=== PATIENT | female | born 1975 | race Caucasian/White ===

== ENCOUNTER 2023-04-17 16:12 | Inpatient (IN) ==
[2023-04-17] MEDS ORDERED: Rocuronium 50 mg VIAL 10 mg/ml 5 ml VIAL (50 mg) ONE (16:20)
[2023-04-17] MEDS ORDERED: Succinylcholine 200 mg VIAL 20 mg/ml 10 ml VIAL (200 mg) ONE (16:20)
[2023-04-17] MEDS ORDERED: Etomidate 40 mg/20 ml (2 MG/ML) 20 ml VIAL (40 mg) ONE (16:29)
[2023-04-17] MEDS ORDERED: Lidocaine 2% PF 5 ML VIAL ONE (16:45)
[2023-04-17] MEDS ORDERED: Midazolam 10 mg/10 ml VIAL 1 mg/ml 10 ml VIAL (10 mg) ONE (16:52)
[2023-04-17] MEDS ORDERED: Etomidate 20 mg/10 ml 2 MG/ML 10 ml VIAL IV ONE (17:04)
[2023-04-17] MEDS: Midazolam PREMIXBAG 1 MG/ML NS 100 ML IV SCH (17:20)
[2023-04-17 17:29] LABS: Activated Partial Thrombo Time 37.8 seconds (26.0-38.0); INR 1.27 (0.83-1.13)
[2023-04-17 17:44] LABS: Urine Appearance Clear; Urine Bilirubin Negative (Negative); Urine Blood 3+ (Negative); Urine Color Yellow; Urine Glucose 1+(50 mg/dL) (Negative); Urine Ketones Negative (Negative); Urine Nitrite Negative (Negative); Urine Protein 1+(30 mg/dL) (Negative); Urine Specific Gravity 1.012 (1.002-1.030); Urine Urobilinogen Negative (Negative)
[2023-04-17 17:45] LABS: Potassium 5.1 mmol/L (3.5-5.0)
[2023-04-17 17:46] LABS: Albumin 4.5 g/dL (3.2-5.2); C Reactive Protein 17.46 mg/L (<8.01); Calcium 10.1 mg/dL (8.6-10.3); Creatinine, Serum 1.96 mg/dL (0.51-0.95); Globulin 4.6 g/dL (2-4); Total Bilirubin 0.5 mg/dL (0.2-1.0); Total Protein 9.1 g/dL (6.4-8.9); eGFR CKD-EPI 31.2 (>60)
[2023-04-17 17:52] LABS: ABS Basophils 0.1 10^3/uL (0.0-0.1); ABS Lymphocytes 2.6 10^3/uL (1.0-4.8); ABS Monocytes 0.6 10^3/uL (0.0-0.9); ABS Neutrophils 11.1 10^3/uL (1.5-7.6); ABS Nucleated RBC 0.05 10^3/ul; Eosinophil % 0.1 %; Hematocrit 53.8 % (35-45); Hemoglobin 17.5 g/dL (11.5-14.3); Lymphocyte % 18.3 %; Mean Corpuscular Hemoglobin 33.6 pg (27-33); Mean Corpuscular Hgb Conc 32.5 g/dL (31-36); Mean Corpuscular Volume 103.2 fL (80-97); Mean Platelet Volume 9.1 fL (7.5-11.2); Nucleated Red Blood Cells % 0.4 %/100WBC (0.0-0.8); Platelet Count 233 10^3/uL (150-450); Red Blood Count 5.22 10^6/uL (3.63-4.92); Red Cell Distribution Width 14.7 % (12-17); White Blood Count 14.4 10^3/uL (3.8-11.8)
[2023-04-17] MEDS ORDERED: Pantoprazole VIAL 40 MG VIAL IV SCH (18:00)
[2023-04-17] MEDS ORDERED: fentaNYL INFUSION 50 mcg/mL VL 2,500 MCG/50 ML VIAL IV SCH ×2 (18:00→21:17)
[2023-04-17] MEDS ORDERED: Enoxaparin 40 MG/0.4 ML SYR SUBCUT SCH (18:00)
[2023-04-17] MEDS ORDERED: Iodixanol (CONTRAST) 320 MG/ML 100 ML SDV IV ONE (18:00)
[2023-04-17] MEDS ORDERED: Piperacillin/Tazobac 3.375 BAG 3.375 GM/100 ML BAG IV ONE (18:15)
[2023-04-17] MEDS ORDERED: Vancomycin 1,000 MG in NS 0.9% 250 ml 250 ML IVPB ONE (18:15)
[2023-04-17 18:18] LABS: Urine Bacteria 1+ (Absent); Urine Red Blood Cell Trace(0-2/hpf) (Absent); Urine Squamous Epithelial Cell Present (Absent); Urine White Blood Cell Trace(0-5/hpf) (Absent)
[2023-04-17] MEDS ORDERED: Norepinephrine 4 MG/250mL D5W 4,000 MCG/250 ML BAG IV ONE (18:26)
[2023-04-17] MEDS ORDERED: Albuterol/Ipratropium NEB.SOL (2.5/0.5 MG) 3 ML NEB.SOLN ONE (18:28)
[2023-04-17 18:56] LABS: Acetaminophen < 15 mcg/mL; Alcohol, S < 13 mg/dL (<13); Salicylate < 2.50 mg/dL (<30)
[2023-04-17] MEDS ORDERED: Vancomycin per Pharmacy 1 EA NOTE FOLLOW UP SCH (19:00)
[2023-04-17] MEDS ORDERED: Vancomycin 2,000 MG in NS 0.9% 500 ml BAG 500 ML IVPB ONE (19:00)
[2023-04-17] MEDS ORDERED: Zosyn per Pharmacy NOTE FOLLOW UP SCH (19:00)
[2023-04-17] MEDS ORDERED: LACTATED RINGERS IV ONE (19:02)
[2023-04-17 19:06] LABS: Hematocrit 51.5 % (35-45); Mean Corpuscular Hemoglobin 33.9 pg (27-33); Mean Corpuscular Hgb Conc 32.9 g/dL (31-36); Mean Corpuscular Volume 103.1 fL (80-97); Mean Platelet Volume 8.6 fL (7.5-11.2); Platelet Count 182 10^3/uL (150-450); Red Cell Distribution Width 14.4 % (12-17)
[2023-04-17 19:08] LABS: TSH Ultra Thyroid Stim Horm 2.98 mcIU/mL (0.34-5.60)
[2023-04-17] MEDS ORDERED: Lidocaine 2% PF 10 ML AMP (OR) INJ ONE (19:13)
[2023-04-17 19:18] LABS: High Sensitivity Troponin 1 Hr 502 pg/mL (<15)
[2023-04-17] MEDS: Norepinephrine 4 MG/250mL D5W 4,000 MCG/250 ML BAG IV SCH ×2 (19:30→23:22)
[2023-04-17 19:47] LABS: ABS Lymphocytes 1.4 10^3/uL (1.0-4.8); ABS Monocytes 0.4 10^3/uL (0.0-0.9); ABS Neutrophils 10.2 10^3/uL (1.5-7.6); ABS Nucleated RBC 0.02 10^3/ul; Eosinophil % 0.1 %; Lymphocyte % 11.4 %; Nucleated Red Blood Cells % 0.2 %/100WBC (0.0-0.8)
[2023-04-17] MEDS: Lactated Ringers 1000 ml BAG 1,000 ML IV SCH ×2 (20:23→20:53)
[2023-04-17 20:37] LABS: ALT 382 U/L (7-52); Albumin 3.9 g/dL (3.2-5.2); Alkaline Phosphatase 144 U/L (35-149); Anion Gap 22 mmol/L (2-16); Blood Urea Nitrogen 14 mg/dL (6-24); C Reactive Protein 17.48 mg/L (<8.01); CO2 Carbon Dioxide 16 mmol/L (22-32); Calcium 8.9 mg/dL (8.6-10.3); Chloride 97 mmol/L (101-111); Creatinine, Serum 1.86 mg/dL (0.51-0.95); Globulin 3.9 g/dL (2-4); Glucose 84 mg/dL (70-100); Sodium 135 mmol/L (135-145); Total Bilirubin 0.9 mg/dL (0.2-1.0); Total Protein 7.8 g/dL (6.4-8.9); eGFR CKD-EPI 33.2 (>60)
[2023-04-17] MEDS: Chlorhexidine MOUTHWASH 0.12% 15 ML UDC SWISH SPIT SCH (20:50)
[2023-04-17] MEDS ORDERED: Cisatracurium 100 MG in NS 0.9% 250 ml 200 ML IV SCH ×2 (21:30→22:30)
[2023-04-17] MEDS ORDERED: Ketamine HCL 50 mg/ml 10 ml VIAL (500 MG) IV ONE ×2 (22:13→23:37)
[2023-04-17] MEDS ORDERED: Albuterol/Ipratropium NEB.SOL (2.5/0.5 MG) 3 ML NEB.SOLN INH ONE (22:13)
[2023-04-17] MEDS ORDERED: Phenylephrine 40 mcg/mL 10mL (400mcg) SYRINGE ONE (22:31)
[2023-04-17] MEDS ORDERED: Phenylephrine 40 mcg/mL 10mL (400mcg) SYRINGE IV PUSH PRN (22:40)
[2023-04-17 22:49] LABS: Resp Rate 28
[2023-04-17 22:52] LABS: PCO2 Arterial 88 mmHg (35-45); PO2 Arterial 59 mmHg (80-100)
[2023-04-17] MEDS ORDERED: Ketamine INFUS(restricted) NS 500 MG/500 ML BAG IV SCH (23:00)
[2023-04-17] MEDS ORDERED: Rocuronium 50 mg VIAL 10 mg/ml 5 ml VIAL (50 mg) IV ONE (23:06)
[2023-04-17] MEDS: Ketamine INFUS(restricted) NS 500 MG/500 ML BAG IV SCH (23:35)
[2023-04-17] MEDS ORDERED: Sodium Bicarbonate 8.4% SYR 50 ml SYRINGE ONE (23:53)
[2023-04-18] MEDS: Chlorhexidine MOUTHWASH 0.12% 15 ML UDC SWISH SPIT SCH ×5 (00:18→13:55)
[2023-04-18] MEDS: Norepinephrine 4 MG/250mL D5W 4,000 MCG/250 ML BAG IV SCH (00:20)
[2023-04-18] MEDS: fentaNYL INFUSION 50 mcg/mL VL 2,500 MCG/50 ML VIAL IV SCH ×2 (00:37→11:28)
[2023-04-18] MEDS: Hydrocortisone INJ 100 MG/2ML 2 ML VIAL IV SCH ×2 (00:44→08:39)
[2023-04-18] MEDS: EPINEPHrine 1 MG/ML MDV 5 MG in D5W 250 ml BAG 245 ML IV SCH ×3 (00:56→10:29)
[2023-04-18] MEDS ORDERED: Norepinephrine 4 MG/250mL D5W 0 MCG/0 ML BAG IV ONE (01:19)
[2023-04-18 01:22] LABS: Urine Benzodiazepine Screen Presumptive Positive (None Detect); Urine Cannabinoids Screen None Detected (None Detect); Urine Opiates Screen Presumptive Positive (None Detect)
[2023-04-18 01:25] LABS: Potassium Redraw 5.1 mmol/L (3.5-5.0)
[2023-04-18] MEDS: Norepinephrine 16 MG/250mL NS 16,000 MCG/250 ML BAG IV SCH ×3 (01:36→10:10)
[2023-04-18 01:40] LABS: ABS Lymphocytes 1.4 10^3/uL (1.0-4.8); ABS Monocytes 0.1 10^3/uL (0.0-0.9); ABS Neutrophils 5.1 10^3/uL (1.5-7.6); ABS Nucleated RBC 0.03 10^3/ul; Eosinophil % 0.1 %; Hemoglobin 16.3 g/dL (11.5-14.3); Lymphocyte % 21.5 %; Mean Corpuscular Hemoglobin 33.8 pg (27-33); Mean Corpuscular Hgb Conc 33.3 g/dL (31-36); Mean Corpuscular Volume 101.5 fL (80-97); Mean Platelet Volume 8.7 fL (7.5-11.2); Nucleated Red Blood Cells % 0.5 %/100WBC (0.0-0.8); Platelet Count 170 10^3/uL (150-450); Red Blood Count 4.83 10^6/uL (3.63-4.92); Red Cell Distribution Width 14.7 % (12-17); White Blood Count 6.7 10^3/uL (3.8-11.8)
[2023-04-18 01:44] VITALS: BP 97/67
[2023-04-18 01:54] LABS: PO2 Arterial 69 mmHg (80-100)
[2023-04-18] MEDS: Ketamine INFUS(restricted) NS 500 MG/500 ML BAG IV SCH ×4 (01:55→09:57)
[2023-04-18 01:58] LABS: PCO2 Arterial 83 mmHg (35-45)
[2023-04-18] MEDS ORDERED: Sodium Bicarbonate 8.4% SYR 50 ml SYRINGE IV ONE (02:23)
[2023-04-18] MEDS: Midazolam PREMIXBAG 1 MG/ML NS 100 ML IV SCH ×2 (02:32→13:16)
[2023-04-18 02:35] LABS: High Sensitivity Troponin 3 Hr 2959 pg/mL (<15)
[2023-04-18 02:41] LABS: Albumin 3.3 g/dL (3.2-5.2); Albumin/Globulin Ratio 0.9 (1-3); Alkaline Phosphatase 102 U/L (35-149); Blood Urea Nitrogen 17 mg/dL (6-24); CO2 Carbon Dioxide 25 mmol/L (22-32); Calcium 7.7 mg/dL (8.6-10.3); Chloride 97 mmol/L (101-111); Creatinine, Serum 1.99 mg/dL (0.51-0.95); Globulin 3.5 g/dL (2-4); Glucose 170 mg/dL (70-100); Sodium 134 mmol/L (135-145); Total Bilirubin 1.1 mg/dL (0.2-1.0); Total Protein 6.8 g/dL (6.4-8.9); eGFR CKD-EPI 30.6 (>60)
[2023-04-18 02:42] LABS: Anion Gap 12 mmol/L (2-16); HCG Pregnancy 0.75 mIU/mL
[2023-04-18 02:43] LABS: ALT 586 U/L (7-52)
[2023-04-18] MEDS: ZOSYN 3.375 GM Q8H per EXTENDED INFUSION IV SCH ×2 (04:23→11:22)
[2023-04-18 04:27] LABS: Magnesium 1.4 mg/dL (1.9-2.7); Phosphorus 5.7 mg/dL (2.5-5.0); Potassium Redraw 4.1 mmol/L (3.5-5.0)
[2023-04-18 04:28] LABS: Calcium 7.5 mg/dL (8.6-10.3); Creatinine, Serum 2.39 mg/dL (0.51-0.95); Potassium 4.2 mmol/L (3.5-5.0); eGFR CKD-EPI 24.6 (>60)
[2023-04-18] MEDS ORDERED: Magnesium Sulf 4 GM/100 ML IV 4,000 MG/100 ML BAG IVPB ONE (04:44)
[2023-04-18 04:51] LABS: Albumin 3.3 g/dL (3.2-5.2); Globulin 3.3 g/dL (2-4); Phosphorus 5.6 mg/dL (2.5-5.0); Total Bilirubin 0.9 mg/dL (0.2-1.0); Total Protein 6.6 g/dL (6.4-8.9)
[2023-04-18 04:54] LABS: Hematocrit 47.5 % (35-45); Hemoglobin 15.9 g/dL (11.5-14.3); Mean Corpuscular Hemoglobin 33.6 pg (27-33); Mean Corpuscular Hgb Conc 33.4 g/dL (31-36); Mean Corpuscular Volume 100.6 fL (80-97); Platelet Count 176 10^3/uL (150-450); Red Blood Count 4.73 10^6/uL (3.63-4.92); Red Cell Distribution Width 14.6 % (12-17); White Blood Count 9.9 10^3/uL (3.8-11.8)
[2023-04-18 04:57] LABS: Vancomycin Random 21.9 mcg/mL
[2023-04-18] MEDS ORDERED: Vancomycin Random Level NOTE FOLLOW UP ONE (06:00)
[2023-04-18 06:35] LABS: PO2 Arterial 78 mmHg (80-100)
[2023-04-18 06:37] LABS: PCO2 Arterial 82 mmHg (35-45)
[2023-04-18 06:56] LABS: ABS Lymphocytes 1.4 10^3/uL (1.0-4.8); ABS Monocytes 0.2 10^3/uL (0.0-0.9); ABS Neutrophils 8.3 10^3/uL (1.5-7.6); ABS Nucleated RBC 0.04 10^3/ul; Eosinophil % 0.1 %; Lymphocyte % 13.8 %; Nucleated Red Blood Cells % 0.4 %/100WBC (0.0-0.8)
[2023-04-18] MEDS ORDERED: Cisatracurium 100 MG in NS 0.9% 250 ml 200 ML IV SCH (07:15)
[2023-04-18] MEDS ORDERED: Sulfur Hexaflouride MICROSPHR 25 MG VIAL ONE (08:28)
[2023-04-18] MEDS ORDERED: Artificial Tear OPHTH.OINT 3.5 GM BOTH EYES PRN (10:15)
[2023-04-18] MEDS ORDERED: KETAMINE HCL IV SCH (11:30)
[2023-04-18] MEDS ORDERED: NS 0.9% IV SCH (11:30)
[2023-04-18] MEDS ORDERED: Norepinephrine 16 MG/250mL NS 16,000 MCG/250 ML BAG IV SCH (13:02)
[2023-04-18] MEDS ORDERED: Ondansetron ODT 4 mg TAB 4 MG TAB SL PRN (14:34)
[2023-04-18] MEDS ORDERED: Atropine 1% (ORAL/SL) 15 ML BTL SL PRN (14:34)
[2023-04-18] MEDS ORDERED: Morphine ORAL CONCENTRATE 5 MG/0.25 ML ORAL.SYRIN SL PRN (14:34)
[2023-04-18] MEDS ORDERED: Morphine 2 MG/ML SYRINGE IV PRN (14:34)
[2023-04-19] MEDS ORDERED: Vancomycin Random Level NOTE FOLLOW UP ONE (06:00)
== END 2023-04-18 14:43 | disposition expired | DRG 4 ==
LOC: ED 16:12 → EDHOLD 17:10 → ICU 17:50
PROVIDERS: ADMIT Student in an Organized Health Care Education/Training Program; ATTEND Student in an Organized Health Care Education/Training Program